=== PATIENT | female | born 1950 | race Caucasian/White ===

== ENCOUNTER 2024-10-02 08:46 | Outpatient (AMB) | payer MEDICARE, SELFPAY ==
--- OUTSIDE RECORDS SUMMARY | 2024-10-02 08:52 | XMS_ITS | Encounter Summary ---
Author Organization [facility] Address [address] [place] [address] Care Team Providers Care Career Development Associate Name Role Phone Dot Lind MD Primary Care Provider [phone] Encounter Details Date Type Department Care Team (Late Contact Info) Description 01/16/2017 Transplant Conversio n Encounter [facility] Health Information Management [address] [place] [phone] Provider, Historical [facility] Social History Tobacco Use Types Packs/Day Years Used Date Smoking Tobacco: Never Comments:: Comments Unknown Sex and Gender Information Value Date Recorded Sex Assigned at Female 02/09/2024 5:01 PM EDT Legal Sex Female 12:40 AM EDT Gender Identity Female 02/09/2024 5:01 PM EDT Sexual Orientation Choose not to disclose 2023 5:01 PM EDT documented as of this encounter Plan of Treatment Upcoming Encounters Date Type Department Care Team (Late Contact Info) Description 02/15/2025 1:00 PM EST Office Visit [facility] Dermatology [address] [place] [address] Technical Training Specialist: Ramón Morales MD [address] [place] [phone] documented as of this encounter Visit Diagnoses Not on filedocumented in this encounter Care Teams Career Development Associate Relationship Specialty Start Date End Date Dot Lind MD [address] [place] [phone] PCP - General Family Medicine 01/29/22 documented as of this encounter
--- NOTE | 2024-10-02 09:20 | HO.SPINEOV ---
Intake Visit Reasons: R side sciatica Intake Note: Ms. Villalobos is here today c/o low back and leg pain. MRI done @ [facility] (brought disc). Assessment & Plan Assessment & Plan (1) Lumbar disc herniation with radiculopathy: Code(s): M51.16 - Intervertebral disc disorders with radiculopathy, lumbar region Category: Medical Plan Dear colleague Thank you for referring Cassie Villalobos to the office today with a chief complaint of persisting right leg pain. HPI: This 74-year-old female developed acute pain radiating from her back down to her front of her thigh and knee on 07/03/2024. Since then she has been in agony. The pain has and continues to interfere with her daily activities. She had significant lifestyle modifications and even by reducing her activities the pain persists. She used to go for long distance walks but can no longer do this due to the pain. A epidural steroid injection was done a few weeks ago at the L3-4 level which has made the symptoms more tolerable. However, she still needs Tylenol twice a day a muscle relaxant and meloxicam for pain control. She did a course of steroids which gave her temporary relief. She denies weakness or numbness. PMH: Hysterectomy, kidney donor, cataract surgery my hypercholesterolemia Medications: Baby aspirin, meloxicam, rosuvastatin, Tylenol, cyclobenzaprine Allergies: Iodine Social history: . Retired. Nonsmoker Physical Exam: Pleasant female. She ambulates with a limp. Straight leg raise produces pain radiating down the front of her thigh. No motor or sensory deficits. Reflexes are intact Radiological Studies: MRI done at [facility] on 08/28/2024 shows a disc herniation L2-3 compressing the right L3 nerve root. There is lumbar degenerative disc disease L4-5. Impression/Plan: This patient is suffering from acute lumbar radiculopathy that started on 07/03/2024. She continues to suffer for a fair amount of pain despite non conservative medical treatment, lifestyle modifications and an epidural steroid injection. We had an extensive discussion on what to do. Most of the times a herniated disc was itself within 6 weeks. She has far beyond this time. And stone significant pain. Therefore I recommended a lumbar microdiskectomy L2-3, right-sided approach. She is scheduled for 11/12/2024. If the pain subsides and this time. She will obviously cancel the surgery. She needs to stop her meloxicam 5 days prior to surgery and the baby aspirin a week. She had a recent physical done. Thank you for allowing me to participate in your patients care. total time spent was 50 minutes in counseling ,coordination of plan, personal review of imaging, surgical decision making and subsequent plan Cole Melara MD, PhD Spine Fellowship Trained Neurosurgeon Director, [facility] Coding Level of Care Code New Pt Level 4 (67831) Diagnoses Lumbar disc herniation with radiculopathy M51.16
== END 2024-10-02 09:56 | disposition home or self-care (01) ==
LOC: HO.HNS 08:47
PROVIDERS: PCP Family Medicine; Visit Provider Neurological Surgery
DX: M51.16 Intervertebral disc disorders with radiculopathy, lumbar region (principal)
CPT/HCPCS: 99204

== ENCOUNTER → 2024-10-02 08:46 | Outpatient (BNVA) | payer MEDICARE, SELFPAY | PROVIDERS: PCP Family Medicine; Visit Provider Neurological Surgery | DX: M51.16 Intervertebral disc disorders with radiculopathy, lumbar region (principal) | CPT/HCPCS: 99202 ==

== ENCOUNTER 2024-11-12 06:36 | Day surgery (SDC) | payer MEDICARE, SELFPAY ==
--- OUTSIDE RECORDS SUMMARY | 2024-10-05 15:51 | XMS_ITS | Encounter Summary ---
Author Organization [facility] Address [address] [place] [address] Care Team Providers Care Crosstie Inspector Name Role Phone Dot Lind MD Primary Care Provider [phone] Encounter Details Date Type Department Care Team (Late Contact Info) Description 01/16/2017 Transplant Conversio n Encounter [facility] Health Information Management [address] [place] [phone] Provider, Historical [facility] Social History Tobacco Use Types Packs/Day [...] Description 02/15/2025 1:00 PM EST Office Visit [facility] Dermatology [address] [place] [address] Server Administrator: Ramón Morales MD [address] [place] [phone] documented as of this encounter Visit Diagnoses Not on filedocumented in this encounter Care Teams Crosstie Inspector Relationship Specialty Start Date End Date Dot Lind MD [address] [place] [phone] PCP - General Family Medicine 01/29/22 documented as of this encounter
[2024-10-29 10:34] VITALS: BP 145/86; PULSE 91; RESP 20; O2SAT 95; BMI 32.6
--- NOTE | 2024-10-29 10:52 | HO.ANESPROP2 ---
Documented by User: Viri Martinez NP 10/29/24 11:04 HPI - Anesthesia Eval Consult details Narrative: 74yo F for Right L2-3 MicroLumbar discectomy, 11/12/24 No recent illness No CP/SOB with housework, groceries Cortisone injection to back 09/14/24: ? periop stress dose Elective nephrectomy (donation to ) PMFSH Active Problems Active Problems: All Active Problems Lumbar disc herniation with radiculopathy (Acute) Past Medical History Medical History Melanoma Uterine leiomyoma Renal insufficiency Mixed hyperlipidemia Family History Family history of problems with anesthesia: No Surgical History Surgical History H/O colonoscopy Hx of hysterectomy Hx of cholecystectomy Hx of shoulder surgery Hx of bilateral cataract extraction History of nephrectomy History of Problems with Anesthesia: No Social History Social History Are you a primary human services care specialist to a significant other at home: No Do you presently have visiting nurse or other home services: No Patient Tobacco Use Status: Never used Tobacco Use of substances other than those prescribed or required for medical reasons: No Have you been hit, kicked, punched, or otherwise hurt by someone within the past year? If so, by whom?: No Are you DNR?: No Advance Directives: No Advance Directives Information Provided: Yes Advance Directives on File: No Patient : No : No Poor oral hygiene: Yes Meds Allergies Allergy/AdvReac Type Severity Reaction Status Date / Time red dye Allergy Severe Headache Verified 11/12/24 06:59 aloe Allergy Intermediate Redness of Verified 11/12/24 06:59 Skin iodine Allergy Intermediate Blister Verified 11/12/24 06:59 meperidine (From Demerol) Allergy Intermediate Headache Verified 11/12/24 06:59 oxycodone Allergy Intermediate Headache Verified 11/12/24 06:59 perfume Allergy Intermediate Headache Verified 11/12/24 06:59 polymyxin B Allergy Intermediate Headache Verified 11/12/24 06:59 Home Medications ?Medication ?Instructions ?Recorded ?Confirmed ?Last Taken ?Type aspirin 81 mg tablet,delayed 81 mg PO DAILY 10/28/24 10/28/24 11/12/21 History release Held on 11/12/24. Instructions: Resume on 11/19/24. You can resume your aspirin in 1 week cyclobenzaprine 5 mg tablet 5 mg PO TID 10/28/24 10/28/24 11/02/24 History rosuvastatin 40 mg tablet 40 mg PO DAILY 10/28/24 10/28/24 11/02/24 History acetaminophen 500 mg tablet 1,000 mg PO Q6H PRN Pain 10/29/24 10/29/24 11/11/24 History (Acetaminophen Extra Strength) gabapentin 100 mg capsule 100 mg PO TID 10/29/24 10/29/24 11/02/24 History meloxicam 7.5 mg tablet 7.5 mg PO DAILY 10/29/24 10/29/24 11/02/24 History Exam Height,Weight and Vital Signs: Height 5 ft 5 in Weight 88.904 kg Last Vital Signs Pulse 91 10/29/24 10:34 Resp 20 10/29/24 10:34 BP 145/86 H 10/29/24 10:34 Pulse Ox 95 10/29/24 10:34 O2 Del Method Room Air 10/29/24 10:34 Pertinent Lab Results Pertinent Lab Results: CMP and CBC 06/09 from outside facility WNL (slight elevated PLT, Creat = 1.1) Airway Mallampati Class: III (small mouth opening) TM Dist: >3cm Neck ROM: Full Loose/Missing/Broken Teeth: No (crowned right lower molar) Heart: RRR Lungs: CTAB Assessment and Plan Assessment Anesthesia Assessment: Anesthesia Plan Discussed and PAT Visit Final Anesthetic Review Family History of Problems with Anesthesia: No History of Problems with Anesthesia: No Documented by User: Stephie Schilling MD 11/12/24 08:33 PMFSH Past Medical History Medical History Melanoma Uterine leiomyoma Renal insufficiency Mixed hyperlipidemia Surgical History Surgical History H/O colonoscopy Hx of hysterectomy Hx of cholecystectomy Hx of shoulder surgery Hx of bilateral cataract extraction History of nephrectomy Social History Social History Are you a primary human services care specialist to a significant other at home: No Do you presently have visiting nurse or other home services: No Patient Tobacco Use Status: Never used Tobacco Use of substances other than those prescribed or required for medical reasons: No Have you been hit, kicked, punched, or otherwise hurt by someone within the past year? If so, by whom?: No Are you DNR?: No Advance Directives: No Advance Directives Information Provided: Yes Advance Directives on File: No Patient : No : No Poor oral hygiene: Yes Meds Allergies Allergy/AdvReac Type Severity Reaction Status Date / Time red dye Allergy Severe Headache Verified 11/12/24 06:59 aloe Allergy Intermediate Redness of Verified 11/12/24 06:59 Skin iodine Allergy Intermediate Blister Verified 11/12/24 06:59 meperidine (From Demerol) Allergy Intermediate Headache Verified 11/12/24 06:59 oxycodone Allergy Intermediate Headache Verified 11/12/24 06:59 perfume Allergy Intermediate Headache Verified 11/12/24 06:59 polymyxin B Allergy Intermediate Headache Verified 11/12/24 06:59 Home Medications ?Medication ?Instructions ?Recorded ?Confirmed ?Last Taken ?Type aspirin 81 mg tablet,delayed 81 mg PO DAILY 10/28/24 10/28/24 11/12/21 History release Held on 11/12/24. Instructions: Resume on 11/19/24. You can resume your aspirin in 1 week cyclobenzaprine 5 mg tablet 5 mg PO TID 10/28/24 10/28/24 11/02/24 History rosuvastatin 40 mg tablet 40 mg PO DAILY 10/28/24 10/28/24 11/02/24 History acetaminophen 500 mg tablet 1,000 mg PO Q6H PRN Pain 10/29/24 10/29/24 11/11/24 History (Acetaminophen Extra Strength) gabapentin 100 mg capsule 100 mg PO TID 10/29/24 10/29/24 11/02/24 History meloxicam 7.5 mg tablet 7.5 mg PO DAILY 10/29/24 10/29/24 11/02/24 History Assessment and Plan Final Anesthetic Review NPO: Yes ASA Class: II Final Preanesthetic Review: No Changes in Pt Med Stat, Meds/Allgs Chart Reviewed, Consent Obtained/Reviewed and Anes Risks/Benef Reviewed Patient Risk: Low Procedure Risk: Intermediate Anesthetic Plan Anesthetic Plan: GA and Agree w/ Assess. and Plan Disposition: Standard PACU
[2024-11-12] VITALS (15 sets, daily range): BP systolic 123–153; BP diastolic 70–83; PULSE 70–89; RESP 11–20; TEMP 36.3–36.4; O2SAT 96–99; BMI 32.2
--- NOTE | ~2024-11-12 | FL_ITS ---
EXAMINATION: FL GUIDANCE ONLY HISTORY: L2-3 Microdiscectomy Right COMPARISON: None available. TECHNIQUE: Fluoroscopy time: Less than 1 minute. Cumulative Dose: 5.29 mGy. DAP: 1.44 mGym2 Images: 1. FINDINGS: A single fluoroscopic spot film of the lumbar spine in the lateral projection demonstrates a probe directed toward the L2-3 intervertebral disc space from a posterior approach. FL/FL guidance in OR IMPRESSION: Fluoroscopy during procedure. Please see procedure report for additional information. Electronically signed by: Jorge Ring MD 11/12/2024 10:43 AM EDT
[2024-11-12] MEDS: Lactated Ringers 1,000 ML 100 ML IVCONT (06:46)
--- NOTE | 2024-11-12 07:06 | MHC.SHP ---
Pre-Procedural Eval Section A - 24 Hr Update-Section A only Date of Service: 11/12/24 The patient is an INPATIENT: No Changes since office visit: No Cold of Flu in the past 2 weeks, No New Medical Problems, No Changes in Medication and No Patient answered all questions The patient has been examined within 24 hours of the surgical procedure. The History & Physical has been completed within 30 days and I have reviewed it.: No Section B - Complete if H&P > 30 days Chief Complaint: Intervertebral disc disorders with radiculopathy, Allergies: Allergies Allergy/AdvReac Type Severity Reaction Status Date / Time red dye Allergy Severe Headache Verified 11/12/24 06:59 aloe Allergy Intermediate Redness of Verified 11/12/24 06:59 Skin iodine Allergy Intermediate Blister Verified 11/12/24 06:59 meperidine (From Demerol) Allergy Intermediate Headache Verified 11/12/24 06:59 oxycodone Allergy Intermediate Headache Verified 11/12/24 06:59 perfume Allergy Intermediate Headache Verified 11/12/24 06:59 polymyxin B Allergy Intermediate Headache Verified 11/12/24 06:59 Review of Systems Sugical H&P ROS: Negative: Constitution, Cardiovascular, Respiratory, Neurological, Psychiatric, Hem-Onc, Allergic/Immunologic, Gastrointestinal, Genitourinary, Musculoskeletal, Integumentary, Endocrine and Eyes/Ears/Nose/Throat Exam Surgical H&P Exam: Normal: HEENT, Normal: Heart, Normal: Lungs, Normal: Extremities, Normal: Abdomen, Normal: Skin and Normal: Neurological (awake, alert,oriented x 3) Plan Diagnosis/Plan: Unchanged right L2-3 microdiskectomy Time Spent With Patient Time: Total time managing care of this patient today __5__ minutes.
--- NOTE | 2024-11-12 07:39 | P.DS_ITS ---
DS: Providers Provider Date of Service: 11/12/24 Date of discharge: 11/12/24 Primary care physician: DOTTIE WOMACK MD Admitting clinician: Cole Melara DS: Diagnosis Discharge Diagnosis (1) Lumbar disc herniation with radiculopathy: Status: Acute DS: Summary Time Attestation Discharge Coordination Time (in mins): 5 Quality: Safe Use of Opioids Does Pt have an Active Cancer Diagnosis on the Problem List?: No Quality: Stroke Does the patient have a stroke diagnosis?: No Physical Exam Vital Signs: Vital Signs: Last Vital Signs Temp 97.5 F 11/12/24 06:51 Pulse 77 11/12/24 06:51 Resp 20 11/12/24 06:51 BP 153/83 H 11/12/24 06:51 Pulse Ox 96 11/12/24 06:51 O2 Del Method Room Air 11/12/24 06:51 BMI result Body Mass Index 32.2 Discharge Plan Discharge Patient Disposition: Home, Self-Care Referrals: DOTTIE WOMACK [Primary Care Provider, Family Practice] - 1 Week Discharge Medications: New tramadol 50 mg tablet 50 mg PO Q8H PRN (Reason: pain) Qty: 20 0RF Continued cyclobenzaprine 5 mg tablet 5 mg PO TID rosuvastatin 40 mg tablet 40 mg PO DAILY acetaminophen [Acetaminophen Extra Strength] 500 mg Tablet 1,000 mg PO Q6H PRN (Reason: Pain) meloxicam 7.5 mg tablet 7.5 mg PO DAILY gabapentin 100 mg capsule 100 mg PO TID Held aspirin 81 mg Tablet,Delayed Release (Dr/Ec) 81 mg PO DAILY Hold Instructions: Resume on 11/19/24. You can resume your aspirin in 1 week Discharge Orders: Discharge Order (Routine); Ordered 11/12/24 Ordered By: Claudio Jacobs Diet: Advance to usual diet Activity on Discharge: As tolerated Activity Restrictions/Additional Instructions: After your spinal surgery we ask you to observe the following restrictions/guidelines: Activity: It is normal to feel some discomfort as you increase your activity, but that will improve with time. We ask you avoid heavy lifting or acitivities that cause pain. As a general rule, 8lbs is a safe limit for lifting right after surgery. Walk as much as you feel comfortable but not to exhaustion. You will feel extra tired the first few days after surgery. Stay well hydrated. It is OK to walk up and down stairs You may return to driving when you are off narcotics (such as vicodin, oxycodone, dilaudid, etc), and you are back to normal functional capacity. If you have any concerns please check with office before driving. Return to work is specific to each patient and each surgery, so please speak with your doctor/PA at first follow up. Please bring paperwork such as FMLA at that time if you need it filled out. Medications: For optimum pain control, it is best to start with a combination of 500 mg of Tylenol every 4 hours with 600 mg of Motrin every 8 hours, and use narcotics as needed in between for breakthrough pain. We will give you a short supply of narcotics after surgery (usually one weeks worth). If you need more please call the office but do not use more than prescribed. You will need to give our office 48 hours notice if you need narcotics refilled and we do not fill narcotics on weekends or evenings. If you are on a narcotic, it is a good idea to take a stool softener such as colace or senna to avoid constipation If you take blood thinner such as aspirin, Plavix, Coumadin, Effient, Eliquis etc for conditions such as Afib, DVT, Pulmonary embolus, coronary disease, stents etc please speak with your surgeon about specific details as to when you can resume these medications. You can resume NSAIDs on post op day 1 (eg: Motrin, Naproxen, etc). Follow up: Please call the office, , after surgery to arrange a 3 week follow up for wound check. Wound Care: You may remove your dressing on the first day after surgery. ?You may ?leave open to air. Please do not remove the steri strips underneath. they will fall off on their own in one week. IT IS NORMAL FOR THE WOUND TO OOZE OR BE BLOODY FOR A FEW DAYS AFTER SURGERY. ?IF THIS HAPPENS JUST PLACE NEW DRESSING OVER IT TO AVOID STAINING CLOTHES. You may shower on post op day # 1 We ask that you do not let the water soak the wound. If it does get wet, just towel dry lightly. Please do not scrub your incision or place any type of chemical/ointment on the wound. No tub baths, pools or jacuzzis for one month. If you have any leaking or redness from your wound, or fevers, please call office Print Language: Chinese
--- NOTE | 2024-11-12 10:45 | W.PM.OPN ---
Operative Note Operative Note Date of Service: 11/12/24 Narrative: Preoperative diagnosis: Right lumbar radiculopathy due to L2-3 disc herniation Postoperative diagnosis: Same Procedure: Right L2-3 lumbar microdiskectomy with microscope Surgeon: Cole Mleara MD, PhD [employer] Machine Operator: enedelia Tee This patient is suffering from a lumbar radiculopathy due to a disc herniation L2-3 compressing the right L3 nerve root.. The patient was offered a lumbar microdiskectomy to decompress the nerve root. The procedure complications were explained. The patient was consented. The patient was brought to the operating room and endotracheally intubated. The patient was turned in a prone position on the Jose frame. Prepping and draping was done followed by time-out. A mid lumbar incision was made followed by release of the paravertebral muscles on the right side to expose the L2-3 interspace. An intraoperative x-rays obtained to confirm the correct level. The microscope was brought in. A L2 laminotomy was done followed by opening of the flavum ligament. The L3 nerve root was identified and retracted medially to expose the L2-3 disc space. I could palpate a disc herniation medial from the L3 nerve root, which I carefully removed with a pituitary. The disc space was inspected and any residual disc fragments were removed. This resulted in an excellent decompression of the L3 nerve root. Hemostasis was done. The microscope was removed. Marcaine was injected intramuscularly.The incision was closed in two layers. Steri-Strips used to approximate the incision. An op-site were taken there was used to cover the incision. All sponge and needle counts were correct. Patient was extubated and transported in stable condition to recovery room. this procedure was done with the aid of a physician patient care nursing assistant who performed the initial exposure until the microscope was brought in and performed the closure of the incision. Anesthesia: General Blood loss: 20 mL Complications: None Specimen: None Surgical time: 60 minutes Disposition: Discharge home
== END 2024-11-12 13:22 | disposition home or self-care (01) ==
PROVIDERS: PCP Family Medicine; Visit Provider Neurological Surgery
PROC: (CPT 63030; principal; 2024-11-12 09:40)
DX: M51.16 Intervertebral disc disorders with radiculopathy, lumbar region (principal); R26.2 Difficulty in walking, not elsewhere classified; E78.00 Pure hypercholesterolemia, unspecified; Z52.4 Kidney donor; Z79.82 Long term (current) use of aspirin; Z79.899 Other long term (current) drug therapy
CPT/HCPCS: 63030; J0131; J0690; J1100; J2003; J2405; J2704; J3010

== ENCOUNTER → 2024-11-12 06:36 | Outpatient (BNV) | payer MEDICARE, SELFPAY | PROVIDERS: PCP Family Medicine; Visit Provider Neurological Surgery | DX: M51.16 Intervertebral disc disorders with radiculopathy, lumbar region (principal) | CPT/HCPCS: 63030; 99499 ==